=== PATIENT | male | born 2000 | race Caucasian/White ===

== ENCOUNTER 2019-09-22 01:40 | Emergency (ER) | payer OTHER ==
--- NOTE | 2019-09-22 05:51 | ED ---
Respiratory - HPI Summary HPI Summary: Patient is a 19-year-old male who presents emergency department for the ongoing productive cough and nasal congestion times one week. Patient states he's had intermittent fever this week up to 103F. Patient states fever stopped about 2 days ago. Patient has a history of asthma and has been using albuterol nebulizer intermittently to help with cough. Patient states he had a prescription for amoxicillin and prednisone which she started a few days ago. Patient was concerned today because he noticed bright red blood in his sputum. Patient otherwise denies abdominal pain, vomiting, diarrhea, urinary symptoms. He is a student at [employer] on immunizations are up-to-date. Symptoms are mild- to-moderate in severity. No current modifying factors. - History of Current Complaint Chief Complaint: EDUpperRespComplaint Stated Complaint: FEVER PER PT Time Seen by Provider: 09/22/19 05:38 Hx Obtained From: Patient Pain Intensity: 3 - Allergy/Home Medications Allergies/Adverse Reactions: Allergies Allergy/AdvReac Type Severity Reaction Status Date / Time No Known Allergies Allergy Verified 09/22/19 01:59 PMH/Surg Hx/FS Hx/Imm Hx Previously Healthy: Yes Infectious Disease History: No Infectious Disease History: Denies: Traveled Outside the [place] in Last 30 Days - Family History Known Family History: Positive: Non-Contributory - Social History Occupation: Student Lives: With Family Alcohol Use: Occasionally Substance Use Type: Reports: None Smoking Status (MU): Current Some Day Smoker Review of Systems Positive: Fever Eyes: Negative Positive: Sore Throat, Nasal Discharge Cardiovascular: Negative Positive: Cough. Negative: Shortness Of Breath Gastrointestinal: Negative Negative: Abdominal Pain, Vomiting, Diarrhea Genitourinary: Negative Skin: Negative Negative: Rash Neurological: Negative All Other Systems Reviewed And Are Negative: Yes Physical Exam Triage Information Reviewed: Yes Vital Signs On Initial Exam: Initial Vitals Temp Pulse Resp BP Pulse Ox 98.5 F 96 16 144/91 99 09/22/19 01:55 09/22/19 01:55 09/22/19 01:55 09/22/19 01:55 09/22/19 01:55 Vital Signs Reviewed: Yes Appearance: Positive: Well-Appearing - Pt. sitting up in bed in NAD. Appears tired. Skin: Positive: Warm, Dry Head/Face: Positive: Normal Head/Face Inspection Eyes: Positive: Normal, EOMI, CARL, Conjunctiva Clear ENT: Positive: Pharyngeal erythema, Nasal congestion, TMs normal, Uvula midline. Negative: Tonsillar swelling, Tonsillar exudate, Trismus, Muffled voice Neck: Positive: Supple, Nontender. Negative: Nuchal Rigidity Respiratory/Lung Sounds: Positive: Clear to Auscultation, Breath Sounds Present. Negative: Rales, Rhonchi, Wheezes Cardiovascular: Positive: Normal, RRR Abdomen Description: Positive: Nontender, Soft Neurological: Positive: Normal, CN Intact II-III Psychiatric: Positive: Affect/Mood Appropriate Procedures - Sedation Patient Received Moderate/Deep Sedation with Procedure: No Diagnostics - Vital Signs Vital Signs Temp Pulse Resp BP Pulse Ox 09/22/19 05:36 64 16 84/37 09/22/19 05:25 98 99 09/22/19 03:55 98.1 F 72 16 140/82 100 09/22/19 01:55 98.5 F 96 16 144/91 99 - Laboratory Lab Statement: Any lab studies that have been ordered have been reviewed, and results considered in the medical decision making process. Disposition - Course Course Of Treatment: Patient presenting with ongoing cough and nasal congestion. He is afebrile the ER and nontoxic appearing. Oxygen saturation is normal. Exam is relatively unremarkable. Chest x-ray obtained to rule out pneumonia as well as flu swab. Chest x-ray negative for acute findings per radiology. Negative flu swab. Results discussed with patient. Suspect viral etiology. Advised increase fluids and rest. Continue albuterol nebs as needed. Recommend coolmist humidifier. Tylenol or Motrin for discomfort as directed. To call [facility] on Tuesday for close follow-up appointment. Return to the ER symptoms change or worsen. Patient understands and agrees with plan. - Differential Dx - Cardiopulmonary Differential Diagnoses - Cardiopulmonary: Asthma, Bronchitis, Influenza, Pneumothorax - Diagnoses Provider Diagnoses: Bronchitis Discharge ED - Sign-Out/Discharge Documenting (check all that apply): Patient Departure - Discharge Plan Condition: Good Disposition: HOME Patient Education Materials: Upper Respiratory Infection (ED), Acute Bronchitis (ED) Referrals: [facility] [Outside] Additional Instructions: Schedule a follow up appointment with [facility] for Tuesday Increase fluids and rest Tylenol or Motrin for discomfort as directed Recommend using humidifier in bedroom Recommend Mucinex over the counter as directed Return to ER if symptoms change or worsen - Billing Disposition and Condition Condition: GOOD Disposition: Home
[2019-09-22 06:27] LABS: Influenza A Molecular NEGATIVE (Negative); Influenza B Molecular NEGATIVE (Negative)
[2019-09-22 07:29] VITALS: BP 147/77
== END 2019-09-22 07:06 | disposition home or self-care (01) ==
LOC: ED 01:40
DX: J40 Bronchitis, not specified as acute or chronic (principal); F17.200 Nicotine dependence, unspecified, uncomplicated
CPT/HCPCS: 71046; 99282